=== PATIENT | female | born 1975 | race Caucasian/White ===

== ENCOUNTER 2020-10-27 07:42 | Day surgery (SDC) | payer OTHER, SELFPAY ==
[~2020-10-27] VITALS: Ht 152.4 cm; Wt 72.6 kg
[~2020-10-27 07:42] MED LIST: CEFAZOLIN SOD 1 GM in D5W 50 ML IV ONE
[2020-10-27 08:23] LABS: HCG,QUAL RESULT NEGATIVE (NEGATIVE)
[2020-10-27] MEDS ORDERED: PROPOFOL 200MG/ 20ML VIAL (DIPRIVAN) IV ONE (09:30)
[2020-10-27] MEDS ORDERED: KETOROLAC TROMETHAMINE 30 MG VIAL IVP ONE (09:30)
[2020-10-27] MEDS ORDERED: LR 1,000 ML IV.SOLN IV ONE (09:30)
[2020-10-27] MEDS ORDERED: DESFLURANE 15 MIN GAS INH ONE (09:30)
[2020-10-27] MEDS ORDERED: MIDAZOLAM HCL 5 MG/5 ML VIAL IVP ONE (09:30)
[2020-10-27] MEDS ORDERED: SUGAMMADEX SODIUM 200 MG/2 ML VIAL IV ONE (09:30)
[2020-10-27] MEDS ORDERED: ROCURONIUM BROMIDE 10 MG/ML (ZEMURON) IV ONE (09:30)
[2020-10-27] MEDS ORDERED: DEXAMETHASONE SOD PHOSPHATE 4 MG/ML VIAL IVP ONE (09:30)
[2020-10-27] MEDS ORDERED: LIDOCAINE 1% 10 MG/ML, 20 ML MDV INJ ONE (09:30)
[2020-10-27] MEDS ORDERED: NS IRRIG SOLN 1000 ML IR ONE (09:30)
[2020-10-27] MEDS ORDERED: fentaNYL CITRATE 250 MCG/5 ML AMP IV ONE (09:30)
[2020-10-27] MEDS ORDERED: ONDANSETRON HCL 4 MG/2 ML VIAL IVP ONE (09:30)
[2020-10-27] MEDS ORDERED: ONDANSETRON HCL 4 MG/2 ML VIAL IVP PRN (10:15)
[2020-10-27] MEDS ORDERED: HYDROmorphone 1 INJ. 1 MG/ML CARTRIDGE IVP PRN ×3 (10:15→10:45)
[2020-10-27] MEDS ORDERED: hydrALAZINE HCL 20 MG/ML VIAL IVP PRN (10:15)
[2020-10-27] MEDS ORDERED: LABETALOL 100 MG/ 20ML VIAL IVP PRN (10:15)
[2020-10-27] MEDS ORDERED: MIDAZOLAM HCL 2 MG/2 ML VIAL (VERSED) IVP PRN (10:15)
[2020-10-27] MEDS ORDERED: MEPERIDINE HCL/PF 25 MG/ML DISP.SYRIN IVP PRN (10:15)
[2020-10-27] MEDS ORDERED: METOCLOPRAMIDE HCL 10 MG/2 ML VIAL IVP PRN (10:15)
[2020-10-27] MEDS ORDERED: LR 1,000 ML IV SCH (10:15)
[2020-10-27] MEDS ORDERED: D5/0.45 NS 1,000 ML IV SCH (10:45)
[2020-10-27] MEDS ORDERED: HYDROcodone/ACETAMIN 5-325 MG TAB (NORCO/ VICODIN) PO PRN ×2 (10:45)
[2020-10-27] MEDS: HYDROmorphone 1 INJ. 1 MG/ML CARTRIDGE ONE ×2 (11:50→11:55)
[2020-10-27 13:35] VITALS: BP_SYST 118
== END 2020-10-27 13:35 | disposition home or self-care (01) ==
LOC: SDS 07:42 → SMU 07:42 → SDS 13:35
PROVIDERS: ATTEND Colon & Rectal Surgery
DX: K80.12 Calculus of gallbladder with acute and chronic cholecystitis without obstruction (principal); K21.9 Gastro-esophageal reflux disease without esophagitis; D64.9 Anemia, unspecified; E66.9 Obesity, unspecified; Z79.899 Other long term (current) drug therapy
CPT/HCPCS: 36415; 47563; 74300; 84703; 87426; 88304; C1727; C1758; C9399; J0690; J1100; J1170; J1885; J2001; J2250; J2405; J2704; J3010; J7060; J7120; Q9967; 76000